=== PATIENT | female | born 1965 | race Caucasian/White ===

== ENCOUNTER 2016-06-01 09:01 | Day surgery (SDC) | payer OTHER ==
[~2016-06-01 09:01] MED LIST: ACETAMINOPHEN 500 MG TABLET PO PRN; HYDROmorphone HCL 2 MG/ML VIAL IV PRN; MAG HYDROX/ALUMINUM HYD/SIMETH 30 ML UDC PO PRN; MAGNESIUM HYDROXIDE 30 ML UDC PO PRN; ONDANSETRON HCL/PF 2 MG/ML VIAL IV PRN; PROMETHAZINE HCL 25 MG in DEXTROSE 5 % IN WATER 50 ML IV PRN; RINGERS SOLUTION,LACTATED 1,000 ML IV PRN; ROPIVACAINE HCL/PF 40 MG in NORMAL SALINE 16 ML IJ PRN; ZOLPIDEM TARTRATE 5 MG TABLET PO PRN; ceFAZolin SODIUM 1 GM VIAL IV PRN; diphenhydrAMINE HCL 50 MG/ML VIAL IV PRN; oxyCODONE HCL/ACETAMINOPHEN 1 TAB TABLET PO PRN
[2016-06-01] MEDS ORDERED: RINGERS SOLUTION,LACTATED 1,000 ML IV ONE ×2 (09:27→10:55)
--- OUTSIDE RECORDS SUMMARY | 2016-06-01 10:27 | XMS REPORT | Continuity of Care Document ---
:1965 Author Organization [facility] ([facility]) [place] [address] Phone [phone] Care Team Providers Name Role Phone Micheal Christiansen Primary Care Provider [phone] Source Comments This disclosure is being made pursuant to the Care Everywhere program, applicable federal and state laws, and may not contain all informaitonavailable regarding this patient.[facility] ([facility]) Active Allergies and Adverse Reactions Allergen Noted Date Severity Reactions Comments Meperidine 06/20/2013 Nausea & Vomiting Penicillins 06/17/2011 Unknown Possible hives, was to young to remember Current Medications Prescription Sig. Disp. Refills Start Date End Date Status cyanocobalamin Take 1,000 mcg by Active (VITAMIN B-12) 1,000 mouth daily. mcg tablet aspirin 81 mg EC Take 81 mg by mouth Active tablet daily. esomeprazole (NEXIUM) Take 1 Cap by mouth 2 60 Cap 2 02/20/2012 Active 40 mg EC capsule times daily. Indications: GASTROESOPHAGEAL REFLUX zolpiDEM 10 mg tablet Take 10 mg by mouth at Active bedtime as needed. Indications: SLEEP-ONSET INSOMNIA ALPRAZOLAM, BULK, NA as needed. Active multivitamin tablet Take 1 Tab by mouth Active daily. oxyCODONE-acetaminoph Take 1-2 Tabs by mouth 80 Tab 0 06/20/2013 Active en 5-325 mg per every 4 hours as tablet needed for Pain. Do Not exceed 4000 mg of acetaminophen per 24 hours. Indications: PAIN docusate (COLACE) 100 Take 1 Cap by mouth 2 60 Cap 1 06/20/2013 Active mg capsule times daily. Indications: CONSTIPATION CYCLOBENZAPRINE HCL Take by mouth. Active (FLEXERIL PO) Active Problems Problem Noted Date Rotator cuff tear 07/02/2013 GERD (gastroesophageal reflux disease) 04/11/2013 Alcoholism 04/11/2013 Hyperlipidemia LDL goal <130 07/07/2011 Tobacco abuse 07/07/2011 Left knee pain 06/29/2011 Pain in Joint, Rt Shoulder Region 08/31/2007 Overview: Large rim-rent tear at the supraspinatus attachment with supraspinatus tendinosis. MRI 2011 Immunizations Name Dates Previously Given Next Due Tdap 02/25/2011 Social History Tobacco Use Types Packs/Day Years Used Date Current Every Day Smoker Cigarettes 0.25 20 Smokeless Tobacco: Never Used Tobacco Cessation:Counseling Given: Yes Comments: Alcohol Use Drinks/Week oz/Week Comments Yes 10 Glasses of wine 17.0 24 Cans of beer Last Filed Vital Signs Vital Sign Reading Time Taken Blood Pressure 98/50 06/20/2013 11:30 AM CDT Pulse 64 06/20/2013 11:30 AM CDT Temperature 36.8 C (98.2 F) 06/20/2013 10:45 AM CDT Respiratory Rate 16 06/20/2013 11:30 AM CDT Height 1.626 m (5' 4") 06/20/2013 6:56 AM CDT Weight 65 kg (143 lb 4.8 oz) 06/20/2013 6:56 AM CDT Body Mass Index 24.59 06/20/2013 6:56 AM CDT Oxygen Saturation 98% 06/20/2013 11:30 AM CDT Plan of Care Patient Goal Type Goal Diet Reduce fat intake Reduce calorie intake to 2000 calories per day Lifestyle Increase physical activity Health Maintenance Due Date Last Done Comments Hepatitis B Vaccine (1 of 3 - Primary 1965 Series) MMR Vaccine 1982 Pneumococcal Vaccine (1 of 1 - PPSV23) 05/29/1983 Cervical Cancer Screening 1994 Mammogram 2004 Colonoscopy 2014 Influenza Vaccine: Seasonal (#1) 10/12/2015 Lipid Disorder Screening 06/28/2016 06/29/2011 Td Vaccine 02/25/2021 02/25/2011, 02/25/2011 Tdap Vaccine Completed 02/25/2011 HCV Screening Completed 04/11/2013 Results from Last 3 Months Not on file
[2016-06-01] MEDS ORDERED: BUPIVACAINE HCL/EPINEPHRINE 10 ML VIAL IJ ONE (10:35)
--- NOTE | 2016-06-01 11:08 | OR ---
Operative Report - Dictated Report Narrative: Date: Date: 06/01/2016 Physician: Wilfrid Durant M.D. Apartment Maintenance Worker: Martin Santos PA-C Preoperative diagnosis: Right Knee medial meniscus tear Postoperative diagnosis: Right Knee medial meniscus tear, chondromalacia medial femoral condyle Procedure: Right knee arthroscopy with partial medial meniscectomy, chondroplasty medial femoral condyle Anesthesia: MAC Plus local Complications: None Estimated blood loss: Minimal Tourniquet time: None Specimens: None Retained implants: None Drains: None Indications: Mrs. Rao Is a 51 year-old female who has been followed in my clinic with complaints of knee pain consistent with suspected medial joint pathology. Physical exam and diagnostic imaging were consistent with these complaints and concern for medial meniscus pathology. Conservative measures have failed including, but not limited to, passage of time, activity modification, medications, and injections. The risks, benefits, and alternatives were discussed in clinic. The risks being , bleeding, infection, blood clots, nerve, tendon, ligament, blood vessel injury, persistent pain, arthrosis, need for additional procedures, and persistent symptoms. Consent was obtained in the clinic. Procedure: After marking the correct extremity in the preoperative holding area, a timeout was performed in the operating room. IV antibiotics consisting of Ancef were administered prior to the procedure. A well-padded tourniquet was applied to the operative upper thigh. The leg was prepped and draped in a standard sterile fashion. 0.5% Marcaine with epinephrine was infused into the projected portal sites as well as the intra-articular space. A cordelia incision was made for inferior lateral portal. A blunt trocar and cannula was introduced into the knee. The suprapatellar pouch revealed allergy. The medial patella facet showed no arthrosis. The lateral patella facet showed no arthrosis. The trochlea showed grade 1 change. The medial gutter revealed some thickened scar tissue along the medial joint line but no keturah plica. The medial joint space was then entered utilizing a lateral post and valgus stress. A spinal needle was utilized for guidance into placement of an anterior medial portal. This was placed just superior to the medial meniscus ensuring that we could reach the posterior aspect of the medial joint space. A cordelia incision was made in the site, and the probe was introduced to the knee. The medial joint space was examined, and the medial femoral condyle showed grade 3 changes with loose chondral edges about the entire weightbearing portion of the medial femoral condyle. The medial tibial plateau showed minimal degenerative change. The medial meniscus had a degenerative tear at the junction of the anterior and posterior one half of the meniscus which involved approximately 10-15% of the depth. The notch was then examined, and the ACL was noted to be intact. The PCL was noted to be intact. The lateral joint space was then examined using a varus force in the figure 4 position. Lateral femoral condyle showed no arthrosis. Lateral tibial plateau showed grade 1 change. The lateral meniscus showed no tear. The lateral gutter showed to pathology. Having identified the surgical pathology, a series of biters and adonis were utilized in order to debride the medial femoral condyle down to stable margins. Approximately 50% of depth over approximately 20% of the circumference of the medial meniscus was removed using a shaver and punches. Once it was felt that we adequately addressed the pathology, the knee was thoroughly irrigated. The fluid was evacuated ensuring that we have removed all meniscal, chondral, and any other loose bodies. A final evaluation of the joint showed no additional pathology. The fluid was then evacuated of the knee, and the trocar and camera were removed from the joint. The wounds were closed with interrupted nylon after placing 20 mL of 0.2% ropivacaine into the joint. Dressings consisting of Xeroform, 4 x 4, ABD, soft roll, and an Bennie were applied. All sponge, needle, blade, and instrument counts were correct prior to closing the wounds. The patient was awoken and transferred to the postanesthesia care unit in stable condition.
[2016-06-01 12:30] VITALS: BP 122/87
[2016-06-01] MEDS ORDERED: SENNOSIDES/DOCUSATE SODIUM 1 TAB TABLET PO SCH (21:00)
== END 2016-06-01 09:02 | disposition home or self-care (01) ==
LOC: AMB 09:01
PROVIDERS: ATTEND Orthopaedic Surgery
PROC: 0SBC4ZZ Excision of Right Knee Joint, Percutaneous Endoscopic Approach (ICD-10-PCS; principal; 2016-06-01 11:00)
DX: M23.203 Derangement of unspecified medial meniscus due to old tear or injury, right knee (principal); M94.261 Chondromalacia, right knee; F17.200 Nicotine dependence, unspecified, uncomplicated; Z68.27 Body mass index [BMI] 27.0-27.9, adult

== ENCOUNTER 2016-10-09 15:24 | Emergency (ER) | payer OTHER ==
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
[2016-10-09] MEDS ORDERED: KETOROLAC TROMETHAMINE 60 MG/2 ML VIAL IM ONE ×2 (15:40→15:42)
[2016-10-09 20:42] VITALS: BP 128/84
== END 2016-10-09 16:15 | disposition home or self-care (01) ==
LOC: ER 15:24
DX: L03.116 Cellulitis of left lower limb (principal); F17.200 Nicotine dependence, unspecified, uncomplicated